=== PATIENT | male | born 1955 | race Two or more races ===

== ENCOUNTER 2018-04-25 17:55 | Emergency (ER) | payer SELFPAY ==
--- NOTE | 2018-04-25 18:27 | ED Physician Chart ---
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 Allergies:: Allergies Allergy/AdvReac Type Severity Reaction Status Date / Time No Known Allergies Allergy Verified 04/25/18 18:02 Vitals:: Vital Signs - 8 hr 04/25/18 18:02 Temp 98.0 F HR 116 RR 23 BP 110/85 O2 Sat % 97 Historian:: Patient, Family Member (son) ED Review of Systems - Review of Systems General/Constitutional: No fever Skin: No skin lesions Head: No headache Eyes: No loss of vision ENT: No nasal drainage Neck: No neck pain Cardio Vascular: No chest pain Pulmonary: SOB GI: No nausea, No vomiting G/U: No dysuria Endocrine: No polyuria Psychiatric: No depression Allergic/Immuno: No urticaria Neurological: No syncope, No focal symptoms (LARGE ABD ) ED Past Medical History - Past Medical History Past Medical History: Other (LIVER CIRRHOSIS ASCITES) ED Physical Exam - Physical Examination General/Constitutional: Awake, Alert Head: Atraumatic Eyes: Lids, conjuctiva normal Skin: Nl inspection ENMT: External ears, nose nl Neck: Full ROM w/o pain Respiratory: Nl effort/Exclusion, No Wheeze/Rhonchi/Rales Cardio Vascular: No murmur, gallop, rubs Other GI comments:: DISTENDED ABD CIRRHOSIS AND ASCITES Extremities: No tenderness or effusion Neuro/Psych: Alert/oriented Misc: Normal back ED Assessment - Assessment General Assessment: CIRRHOSIS ASCITES ED Septic Shock - . Is Septic Shock (SBP<90, OR Lactate>4 mmol\L) present?: No - <6hrs of presentation: Vital Signs: Vital Signs - 8 hr 04/25/18 18:02 Temp 98.0 F HR 116 RR 23 BP 110/85 O2 Sat % 97 ED Reassessment (Disposition) - Reassessment Reassessment Condition:: Unchanged - Diagnosis Diagnosis:: CIRRHOSI ASCITES DYSPNEA - Patient Disposition Discharge/Transfer:: Elope/AWOL
== END 2018-04-25 18:48 | disposition left against medical advice (07) ==
LOC: ER 17:55
DX: R18.8 Other ascites (principal); R06.00 Dyspnea, unspecified
CPT/HCPCS: Z7502